=== PATIENT | female | born 1945 | race Hispanic/Latino ===

== ENCOUNTER → 2017-11-08 | Outpatient (CLI) | payer OTHER ==
[~2017-11-08] MED LIST: ASPIRIN81 MG PO; FENOFIBRATE200 MG PO; IOPAMIDOL 370 MG/ML 200 ML INFUS..BTL INJ ONE; LEVAQUIN500 MG PO; METFORMIN HCL500 MG PO; METOPROLOL SUCC25 MG PO; NORVASC10 MG PO; PRAVASTATIN SOD80 MG PO; SODIUM CHLORIDE 0.9% 250ML 500 ML ONE; SODIUM CHLORIDE 0.9% 50ML 50 ML ONE; TRIAMTERENE-HC1 EAC2 PO; TYLENOL WITH C1 EACH PO; ZOFRAN ODT4 MG SL
[2017-11-08 14:39] LABS: CREATININE, SERUM 1.25 mg/dL (0.57-1.11)
--- NOTE | 2017-11-12 09:56 | Diagnostic Imaging Report ---
EXAMINATION: CT angiogram of the neck CLINICAL HISTORY:Bilateral carotid artery stenoses follow-up COMPARISON STUDIES:None TECHNIQUE: Axial images were obtained from the thoracic inlet. Coronal and sagittal images reconstructed from the axial data. Intravenous contrast: 75 mL. Of Isovue 370, hydration protocol was used. FINDINGS: If present, stenosis of the carotid bulbs is measured based on NASCET criteria i.e area of maximum stenosis compared to the cervical ICA distal to the bulb. Aortic arch and major vessels: Patent. No abnormalities. Common carotid arteries: Right: Patent. No abnormalities. Left :Patent. No abnormalities. Carotid bulbs: Right: Patent. No abnormalities. Left :Patent. No abnormalities. Internal carotid arteries: Right: Soft and calcified plaque in the right carotid bulb results in moderate stenosis (greater than 70 %) otherwise the cervical internal carotid artery is unremarkable. Left: Minimal mostly soft atherosclerotic plaque in the left carotid bulb results in mild stenoses (less than 50%), otherwise unremarkable cervical internal carotid artery.. Vertebral arteries: Patent. No abnormalities. The right is dominant. IMPRESSION: 1. Severe stenosis of the right carotid bulb (greater than 70%). 2. Mild stenosis of the left carotid bulb (less than 50%). 3. Unremarkable vertebral arteries. Signed by: Dr. Mame Cardenas M.D. on 11/12/2017 9:53 AM
== END ==
LOC: CT 13:34
DX: I65.23 Occlusion and stenosis of bilateral carotid arteries (principal)
CPT/HCPCS: 36415; 70498; 82565; 84520; J7050; Q9967

== ENCOUNTER 2018-03-23 00:49 | Emergency (ER) | payer OTHER ==
[~2018-03-23] VITALS: Ht 162.6 cm; Wt 64.4 kg
[~2018-03-23 00:49] MED LIST changes: -IOPAMIDOL 370 MG/ML 200 ML INFUS..BTL INJ ONE; -SODIUM CHLORIDE 0.9% 250ML 500 ML ONE; -SODIUM CHLORIDE 0.9% 50ML 50 ML ONE
[2018-03-23 02:24] VITALS: BP 130/69
[2018-03-26] MEDS ORDERED: ASPIR 8181 MG PO (11:42)
== END 2018-03-23 02:24 | disposition home or self-care (01) ==
LOC: ER 00:49
DX: I10 Essential (primary) hypertension (principal); E11.9 Type 2 diabetes mellitus without complications; I65.29 Occlusion and stenosis of unspecified carotid artery
CPT/HCPCS: 99282

== ENCOUNTER 2018-03-27 11:44 | Inpatient (IN) | payer OTHER ==
[2018-03-26 12:18] LABS: BASOPHILS # (AUTO) 0.1 (0.0-0.1); BASOPHILS % 1.3 % (0.0-1.0); EOSINOPHILS # (AUTO) 0.2 (0.0-0.4); EOSINOPHILS % 2.3 % (0.0-6.0); HEMATOCRIT 38.8 % (34.2-44.1); HEMOGLOBIN 12.7 g/dL (12.0-16.0); LYMPHOCYTES # (AUTO) 2.1 (1.0-3.2); LYMPHOCYTES % 29.4 % (18.0-39.1); MEAN CORPUSCULAR HEMOGLOBIN 29.7 pg (28-32); MEAN CORPUSCULAR HGB CONC 32.7 g/dL (31-35); MEAN CORPUSCULAR VOLUME 90.7 fL (81-99); MONOCYTES # (AUTO) 0.5 (0.2-0.8); MONOCYTES % 6.6 % (4.4-11.3); NEUTROPHILS # (AUTO) 4.3 (2.1-6.9); NEUTROPHILS % 60.3 % (38.7-80.0); PLATELET COUNT 271 x10e3/uL (140-360); RED BLOOD COUNT 4.28 x10e6/uL (3.6-5.1); RED CELL DISTRIBUTION WIDTH 13.1 % (11.7-14.4)
--- NOTE | 2018-03-26 12:23 | Diagnostic Imaging Report ---
PROCEDURE: X-RAY CHEST, TWO VIEWS COMPARISON: None. INDICATIONS: chest pain FINDINGS: The lungs are well-inflated. No focal consolidation, pleural effusion, or pneumothorax. Left upper lobe calcified granuloma. Mild tortuosity and atherosclerotic calcification of the thoracic aorta. Normal heart size. No pulmonary edema. No acute osseous abnormality. Bilateral acromioclavicular degenerative changes. Surgical clips project over the right upper quadrant of the abdomen likely related to prior cholecystectomy. CONCLUSION: No acute cardiopulmonary abnormality. Dictated by: Frank Rojo M.D. on 03/26/2018 at 12:28 Electronically approved by: Frank Rojo M.D. on 03/26/2018 at 12:28
[2018-03-26 12:30] LABS: INR 1.02; PARTIAL THROMBOPLASTIN TIME 28.8 seconds (23.8-35.5); PROTHROMBIN TIME 12.6 seconds (11.9-14.5)
[2018-03-26 12:35] LABS: ANION GAP 14.4 mmol/L (8-16); CALCIUM 10.4 mg/dL (8.4-10.2); CREATININE, SERUM 1.11 mg/dL (0.57-1.11); POTASSIUM 4.4 mmol/L (3.5-5.1)
[~2018-03-27] VITALS: Ht 162.6 cm; Wt 75.7 kg
[2018-03-27] VITALS (19 sets, daily range): BP systolic 121–148; BP diastolic 60–71
[~2018-03-27 11:44] MED LIST changes: +ASPIR 8181 MG PO
[2018-03-27] MEDS ORDERED: PROTAMINE SULFATE 10 MG/ML 5 ML VIAL ONE (12:45)
[2018-03-27] MEDS ORDERED: LIDOCAINE HCL 1% 2 ML AMP ONE (12:45)
[2018-03-27] MEDS ORDERED: MUPIROCIN 2% OINT 22 GM TUBE ONE ×2 (12:46→12:48)
[2018-03-27] MEDS ORDERED: GELATIN SPONGE SZ 100 ONE (12:46)
[2018-03-27] MEDS ORDERED: THROMBIN FOR SOLN 5,000 UNIT VIAL ONE (12:46)
[2018-03-27] MEDS ORDERED: HEPARIN SOD (PORCINE) 1000 UNIT/ML 30ML ONE (12:46)
[2018-03-27] MEDS ORDERED: SODIUM CHLORIDE 0.9% 500ML 500 ML ONE (12:46)
[2018-03-27] MEDS ORDERED: HEPARIN SOD/SOD CHLORIDE 1,000 ML ONE (13:50)
[2018-03-27] MEDS ORDERED: LIDOCAINE HCL (LTA) 4 ML SOLN ONE (13:59)
[2018-03-27] MEDS ORDERED: ONDANSETRON HCL INJ 2 MG/ML VIAL ONE (15:18)
[2018-03-27] MEDS ORDERED: GLYCOPYRROLATE INJ 1MG/ 5 ML SYR ONE (15:18)
[2018-03-27] MEDS ORDERED: LIDOCAINE HCL 2% LOCAL INJ 5 ML SDV VIAL INJ ONE (15:18)
[2018-03-27] MEDS ORDERED: DESFLURANE 240 ML BTL INH ONE (15:18)
[2018-03-27] MEDS ORDERED: ACETAMINOPHEN 1000 MG/100 ML IV ONE (15:18)
[2018-03-27] MEDS ORDERED: ROCURONIUM BROMIDE 10 MG/ML 5ML VIAL ONE (15:18)
[2018-03-27] MEDS ORDERED: NEOSTIGMINE 5 MG/5ML SYR ONE (15:18)
[2018-03-27] MEDS ORDERED: EPHEDRINE SULFATE INJ 50 MG/10 ML SYR ONE (15:18)
[2018-03-27] MEDS ORDERED: PROPOFOL IV EMULSION 10 MG/ML 20 ML VIAL ONE (15:18)
[2018-03-27] MEDS ORDERED: KETOROLAC TROMETHAMINE 30 MG/ML VIAL ONE (15:18)
[2018-03-27] MEDS ORDERED: LABETALOL HCL 5 MG/ML 20ML VIAL ONE (15:18)
[2018-03-27] MEDS ORDERED: DEXAMETHASONE SOD PHOS INJ 4 MG/ML VIAL ONE (15:18)
[2018-03-27] MEDS ORDERED: FENTANYL CITRATE/PF 100MCG/2 ML INJ ONE ×2 (16:40→17:13)
[2018-03-27] MEDS ORDERED: MIDAZOLAM HCL 2 MG/2 ML VIAL ONE (16:51)
[2018-03-27 17:13] LABS: BASOPHILS # (AUTO) 0.1 (0.0-0.1); BASOPHILS % 0.8 % (0.0-1.0); EOSINOPHILS # (AUTO) 0.1 (0.0-0.4); EOSINOPHILS % 1.8 % (0.0-6.0); HEMATOCRIT 33.5 % (34.2-44.1); HEMOGLOBIN 11.4 g/dL (12.0-16.0); LYMPHOCYTES % 16.6 % (18.0-39.1); MEAN CORPUSCULAR HEMOGLOBIN 30.2 pg (28-32); MEAN CORPUSCULAR VOLUME 88.6 fL (81-99); MONOCYTES # (AUTO) 0.1 (0.2-0.8); MONOCYTES % 1.9 % (4.4-11.3); NEUTROPHILS # (AUTO) 4.9 (2.1-6.9); NEUTROPHILS % 78.6 % (38.7-80.0); PLATELET COUNT 217 x10e3/uL (140-360); RED BLOOD COUNT 3.78 x10e6/uL (3.6-5.1); RED CELL DISTRIBUTION WIDTH 13.2 % (11.7-14.4)
[2018-03-27 17:32] LABS: ALBUMIN 3.5 g/dL (3.5-5.0); ALBUMIN/GLOBULIN RATIO 1.1 (0.8-2.0); ANION GAP 15.6 mmol/L (8-16); CALCIUM 9.5 mg/dL (8.4-10.2); CREATININE, SERUM 0.99 mg/dL (0.57-1.11); POTASSIUM 3.6 mmol/L (3.5-5.1)
[2018-03-27] MEDS ORDERED: MORPHINE SULFATE 2 MG/ML SYR IV PRN (19:00)
[2018-03-27] MEDS ORDERED: MORPHINE SULFATE INJ 4 MG/ML INJ IV PRN (19:00)
[2018-03-27] MEDS ORDERED: LABETALOL HCL 5 MG/ML 20ML VIAL IV PRN (19:15)
[2018-03-27] MEDS ORDERED: ONDANSETRON HCL 4 MG ORAL DISINTEGRATING TAB PO PRN (19:15)
[2018-03-27] MEDS ORDERED: HYDROCODONE/APAP 5MG-325MG TAB PO PRN ×2 (19:15)
[2018-03-27] MEDS: SODIUM CHLORIDE 0.9% 1000ML 1,000 ML IV SCH (19:37)
[2018-03-28] VITALS (50 sets, daily range): BP systolic 111–161; BP diastolic 55–86
[2018-03-28] MEDS ORDERED: CEFAZOLIN SOD 1 GM VIAL IV ONE
[2018-03-28] MEDS: SODIUM CHLORIDE 0.9% 1000ML 1,000 ML IV SCH ×2 (04:52→07:47)
[2018-03-28 05:00] LABS: BASOPHILS % 0.1 % (0.0-1.0); HEMATOCRIT 32.3 % (34.2-44.1); HEMOGLOBIN 10.9 g/dL (12.0-16.0); LYMPHOCYTES # (AUTO) 0.8 (1.0-3.2); LYMPHOCYTES % 8.9 % (18.0-39.1); MEAN CORPUSCULAR HEMOGLOBIN 29.9 pg (28-32); MEAN CORPUSCULAR HGB CONC 33.7 g/dL (31-35); MEAN CORPUSCULAR VOLUME 88.5 fL (81-99); MONOCYTES # (AUTO) 0.2 (0.2-0.8); MONOCYTES % 2.6 % (4.4-11.3); NEUTROPHILS # (AUTO) 7.5 (2.1-6.9); NEUTROPHILS % 88.2 % (38.7-80.0); PLATELET COUNT 225 x10e3/uL (140-360); RED BLOOD COUNT 3.65 x10e6/uL (3.6-5.1); RED CELL DISTRIBUTION WIDTH 13.2 % (11.7-14.4)
[2018-03-28 05:22] LABS: ANION GAP 13.7 mmol/L (8-16); BLOOD UREA NITROGEN 18 mg/dL (7-26); BUN/CREATININE RATIO 20 (6-25); CALCIUM 9.5 mg/dL (8.4-10.2); CARBON DIOXIDE 24 mmol/L (22-29); CHLORIDE 105 mmol/L (98-107); CREATININE, SERUM 0.89 mg/dL (0.57-1.11); EST GLOMERULAR FILTRATION RATE > 60 ML/MIN (60-); GLUCOSE 149 mg/dL (74-118); POTASSIUM 3.7 mmol/L (3.5-5.1); SODIUM 139 mmol/L (136-145)
[2018-03-28] MEDS: AMLODIPINE BESYLATE 10 MG TAB PO SCH (08:19)
[2018-03-28] MEDS: METOPROLOL SUCCINATE 25 MG TAB XL PO SCH (08:19)
--- NOTE | 2018-03-28 08:33 | Consultation ---
DATE OF CONSULTATION: March 28, 2018 PULMONARY/CRITICAL CARE CONSULTATION REFERRING PHYSICIAN: Dr. Serrato. CHIEF COMPLAINT: Hypertension, peripheral vascular disease and recent carotid endarterectomy. HISTORY OF PRESENT ILLNESS: The patient is a 73-year-old woman. She has a history of hypertension, diabetes and peripheral vascular disease. She has symptoms of presyncope and lightheadedness. She went for an ultrasound of the carotid and subsequent CT angiogram that showed an 80% stenosis of the right internal carotid. She was subsequently referred for surgery. She went for carotid endarterectomy. The procedure went well. There was minimal blood loss. She is in the ICU now. She has an A line in place. She does have some incisional pain, but has no focal neurological complaints. PAST MEDICAL HISTORY: 1. Hypertension. 2. Diabetes. 3. Peripheral vascular disease. PAST SURGICAL HISTORY: Recent carotid endarterectomy. SOCIAL HISTORY: The patient is not an active drinker or smoker. FAMILY HISTORY: Family history is noncontributory. ALLERGIES: THERE ARE NO KNOWN DRUG ALLERGIES. REVIEW OF SYSTEMS: There is no fever. She has no headache. She is complaining of some incisional pain in the neck. She has no chest pain. She has no difficulty breathing. She has no cough or wheezing. She has no abdominal pain. She has no nausea or vomiting. She has no focal neurological complaints. PHYSICAL EXAMINATION: VITAL SIGNS: The patient is afebrile. The blood pressure is 124/60 and the saturation is 97%. HEENT: Shows no facial swelling or erythema. The nasal mucosa is normal. CARDIAC: Reveals a regular rate and rhythm with normal S1 and S2. There are no murmurs or rubs. LUNGS: Auscultation reveals clear breath sounds bilaterally. There is no wheezing. ABDOMEN: Soft, nontender. There is no rebound or guarding. EXTREMITIES: Shows no underlying edema or calf tenderness. There is no cyanosis or clubbing. SKIN: No rashes. NEUROLOGIC: Shows no focal abnormalities. LABORATORY DATA: Electrolytes: BUN and creatinine are within normal limits. The CBC is normal. PT and INR are normal. IMPRESSION: 1. Recent carotid endarterectomy. 2. Hypertension. 3. Diabetes. PLAN: 1. Remove arterial line. 2. Mobilize patient. 3. Control blood pressure. 4. Tentative discharged later today or tomorrow. Job#: [id number] GE
--- NOTE | 2018-03-28 08:50 | Consultation ---
DATE OF CONSULTATION: March 27, 2018 CARDIOLOGY CONSULTATION REASON FOR CONSULTATION: Status post right CEA. HPI: This is a pleasant 73-year-old female with a history of severe right carotid stenosis. She was having dizziness and lightheaded. She did a carotid Doppler of the neck that showed severe carotid stenosis. She was brought in as an outpatient. She underwent a right CEA. She is doing better and recovering in the ICU. She has a history of hypertension. She used to smoke, but she quit last week. She denied any chest pain, any palpitation, any shortness of breath, or diaphoresis. PAST MEDICAL HISTORY: Severe right carotid stenosis, GI bleed, hypertension, hyperlipidemia, diabetes, anemia, PVD, and tobacco abuse. PAST SURGICAL HISTORY: Cholecystectomy and eye surgery for glaucoma. FAMILY HISTORY: Noncontributory. SOCIAL HISTORY: She lives at home with family. She stated she quit smoking last week. MEDICATIONS: See med list. ALLERGIES: SHE IS NOT ALLERGIC TO ANY MEDICATION. REVIEW OF SYSTEMS: Negative except those mentioned above. She is status post right CEA. PHYSICAL EXAMINATION VITAL SIGNS: Temperature 97, heart rate 76, blood pressure 147/55, respirations 16, oxygen saturation 97% on room air. GENERAL: She is awake, alert and oriented times 3. HEENT: Mucous membrane moist. She has a dressing on the right neck with ice pack. NECK: Supple with dressing on the right side. LUNGS: Clear to auscultation. CARDIOVASCULAR: S1 and S2 present. ABDOMEN: Soft. NEUROLOGICAL: Intact. EXTREMITIES: With no edema. LABS: Sodium 139, potassium 3.7, chloride 105, CO2 24, BUN 18, creatinine 0.89, glucose 149. White blood cell 8.53, hemoglobin 10.9, hematocrit 32.3, and platelets 225,000. PT 12.6, PTT 28.8 and INR 1.04. IMPRESSION 1. Right carotid stenosis. 2. Hypertension. 3. Diabetes. 4. Hyperlipidemia. 5. Tobacco abuse. 6. History of anemia. 7. History of peripheral vascular disease. ASSESSMENT AND PLAN: She is status post right CEA and recovering good. Blood pressure and heart rate stable. Will continue home medications. PT to get her out of the bed. If stable, she can be discharged home today. Further cardiac workup pending clinical course. Thank you for this consult. DICTATED BY FRANSISCO MARROQUIN NP Job#: [id number] RI
--- NOTE | 2018-03-28 11:15 | Operative Report ---
DATE OF PROCEDURE: March 27, 2018 MANAGER PROGRAMS: Kuldip Ortiz PREOPERATIVE DIAGNOSIS: Severe right carotid stenosis. POSTOPERATIVE DIAGNOSIS: Severe right carotid stenosis. TITLE OF OPERATION: Right carotid endarterectomy. DESCRIPTION OF OPERATION: After the satisfactory accomplishment of general anesthesia, the patient's right neck was prepped and draped in a sterile fashion. A standard right carotid incision was made along the anterior border of the sternomastoid muscle. The incision was carried down through the subcutaneous tissues to expose the right common carotid artery. The vessel was dissected free from the surrounding tissues and looped with a vessel loop. The dissection was carried distally to expose the internal carotid artery and the external carotid artery and its branches. Care was taken to identify and preserve all nerve structures in the region. Systemic heparin was given through a central vein cannula for the purposes of anticoagulation. The common, external and internal carotid arteries were briefly cross-clamped. A long incision was made in the common carotid artery and carried through the bifurcation and well up into the internal carotid artery. A severely obstructing, atherosclerotic plaque was quickly encountered. The plaque was removed using standard endarterectomy techniques. Following this, an indwelling shunt was placed in the common carotid artery proximally and the internal carotid artery distally, thereby re-establishing blood flow to the right side of the brain for the remainder of the case. The surface of the vessel was then smoothed, and all loose debris was carefully removed. Heparinized saline flushes were routinely employed. A previously constructed Dacron patch was brought into the operative field and used to close the arteriotomy site. Running 7-0 Prolene was used for this patch closure. Prior to completing the closure, the shunt was removed, and the vessel was flushed free from all air and debris. Once the sutures were tied, excellent pulses were located within the patch area and beyond. Protamine was given to counteract the effects of the heparin. The cannulas were removed, and the pursestring sutures were tied. All bleeding points were carefully cauterized, ligated or oversewn. The wound was thoroughly irrigated with antibiotic solution and closed in layers with interrupted 2-0 Vicryl for the deep tissues and Monocryl subcuticular stitches for the skin. The patient tolerated the procedure well and was returned to the intensive care unit in good condition. Job#: [id number]
[2018-03-28] MEDS ORDERED: ENOXAPARIN SOD INJ 40 MG/0.4 ML SYR SC SCH (17:00)
[2018-03-28] MEDS ORDERED: SIMVASTATIN 40 MG TAB PO SCH (21:00)
[2018-03-29] VITALS: BP 133/55
[2018-03-29] MEDS: SODIUM CHLORIDE 0.9% 1000ML 1,000 ML IV SCH ×2 (01:00→11:00)
[2018-03-29 04:00] VITALS: BP 136/63
[2018-03-29 08:21] VITALS: BP 163/73
[2018-03-29] MEDS: AMLODIPINE BESYLATE 10 MG TAB PO SCH (08:36)
[2018-03-29] MEDS: METOPROLOL SUCCINATE 25 MG TAB XL PO SCH (08:37)
[2018-03-29 11:51] VITALS: BP 137/68
[2018-03-29] MEDS ORDERED: SODIUM CHLORIDE 0.9% 1000ML 1,000 ML ONE (13:57)
== END 2018-03-29 13:16 | disposition home or self-care (01) | DRG 39 ==
LOC: OR 11:44 → PACU V 16:58 → ICU 17:53 → MED/SURG 03-28 13:08
PROVIDERS: ADMIT Thoracic Surgery (Cardiothoracic Vascular Surgery); ATTEND Thoracic Surgery (Cardiothoracic Vascular Surgery)
PROC: 03CK0ZZ Extirpation of Matter from Right Internal Carotid Artery, Open Approach (ICD-10-PCS; 2018-03-27)
PROC: 03UK0JZ Supplement Right Internal Carotid Artery with Synthetic Substitute, Open Approach (ICD-10-PCS; 2018-03-27)
PROC: 03CH0Z6 (ICD-10-PCS; principal; 2018-03-27 14:00)
DX: I65.21 Occlusion and stenosis of right carotid artery (principal); I10 Essential (primary) hypertension; I25.10 Atherosclerotic heart disease of native coronary artery without angina pectoris; I73.9 Peripheral vascular disease, unspecified; E11.9 Type 2 diabetes mellitus without complications; Z79.4 Long term (current) use of insulin; E78.5 Hyperlipidemia, unspecified
CPT/HCPCS: 36415; 71046; 80048; 80053; 82948; 85025; 85610; 85730; 86850; 86900; 86920; 88304; 88311; 93005; 97139; C1768; J0690; J1100; J1644; J1650; J1885; J2001; J2250; J2405; J2720; J7030; J7040

== ENCOUNTER 2018-05-29 01:52 | Emergency (ER) | payer OTHER ==
[~2018-05-29] VITALS: Ht 162.6 cm; Wt 75.7 kg
== END 2018-05-29 02:32 | disposition home or self-care (01) ==
LOC: ER 01:52
DX: I10 Essential (primary) hypertension (principal); Z87.891 Personal history of nicotine dependence; Z82.49 Family history of ischemic heart disease and other diseases of the circulatory system
CPT/HCPCS: 93005; 99282

== ENCOUNTER 2020-07-11 21:35 | Emergency (ER) | payer OTHER ==
[~2020-07-11] VITALS: Ht 162.6 cm; Wt 64.9 kg
--- NOTE | 2020-07-11 21:58 | Emergency Department Note ---
History of Present Illnes History of Present Illness Chief Complaint: Hypertension History of Present Illness This is a 75 year old female with onset of palpitations and dizziness at 1999. Denies CP or SOB. at Home noted SBP of 199 mmHg Historian: Patient, [employer] Supervisor/EMS Arrival Mode: HFD Onset (how long ago): hour(s) (1) Location: chest and head Radiation: Reports non-radiation Severity: moderate Onset quality: sudden Duration (how long): hour(s) (2) Timing of current episode: constant Progression: partially resolved Chronicity: new Context: Denies recent illness, Denies recent surgery, Denies recent immobilization, Denies recent travel, Denies trauma/injury, Denies new med ications, Denies hx of DVT/PE, Denies non-compliance w/ medications, Denies other Relieving factors: none Exacerbating factors: none Associated symptoms: Denies chest pain, Denies syncope, Denies weakness Treatments prior to arrival: none Past Medical/Family History Physician Review I have reviewed the patient's past medical and family history. Any updates have been documented here. Past Medical History Recent Fever: No Clinical Suspicion of Infectio: No New/Unexplained Change in Ment: No Past Medical History: Hypertension, Diabetes, CAD, Hyperlipedemia Other Medical History: smoker 40 yrs Past Surgical History: Cholecysctectomy, Cataract Removal Other Surgery: Retina repair CATROID Social History Smoking Cessation: Current some day smoker Counseling Performed: Yes Alcohol Use: None Other Last Tetanus: OOD Review of Systems Review of Systems Constitutional: Reports no symptoms EENTM: Reports no symptoms Cardiovascular: Reports palpitations Respiratory: Reports no symptoms Gastrointestinal: Reports no symptoms Genitourinary: Reports no symptoms Musculoskeletal: Reports no symptoms Integumentary: Reports no symptoms Neurological: Reports other (dizziness) Psychological: Reports no symptoms Endocrine: Reports no symptoms Hematological/Lymphatic: Reports no symptoms Physical Exam Related Data Allergies: Coded Allergies: No Known Allergies (Unverified , 05/17/17) Vital signs reviewed: Yes Physical Exam CONSTITUTIONAL Constitutional: Present well-developed, Present well-nourished HENT HENT: Present normocephalic, Present atraumatic, Present oropharynx clear/moist, Present nose normal HENT L/R: Present left ext ear normal, Present right ext ear normal EYES Eyes: Reports PERRL, Reports conjunctivae normal NECK Neck: Present ROM normal PULMONARY Pulmonary: Present effort normal, Present breath sounds normal CARDIOVASCULAR Cardiovascular: Present regular rhythm, Present heart sounds normal, Present capillary refill normal, Present normal rate GASTROINTESTINAL Abdominal: Present soft, Present nontender, Present bowel sounds normal GENITOURINARY Genitourinary: Present exam deferred SKIN Skin: Present warm, Present dry MUSCULOSKELETAL Musculoskeletal: Present ROM normal NEUROLOGICAL Neurological: Present alert, Present oriented x 3, Present no gross motor or sensory deficits PSYCHOLOGICAL Psychological: Present mood/affect normal, Present judgement normal Results Laboratory Lab results reviewed: Yes Imaging Imaging results reviewed: Yes Impressions [facility] [address] [address] Patient Name: SCOTT WHITTAKER MR #: [id number] : 1945 Age/Sex: 75/F Req #: [id number] Adm Physician: Ordered by: ASHLEY FONTAINE DO Report #: [id number] Location: ER Room/Bed: Procedure: [id number] CT/CT BRAIN WO Exam Date: 07/11/20 Exam Time: 3 REPORT STATUS: Signed Exam: Head CT without contrast History: Dizziness Comparison studies: None Technique: Axial images were obtained from the skull base to the vertex. Coronal and sagittal images reconstructed from the axial data. Dose modulation, iterative reconstruction, and/or weight based adjustment of the mA/kV was utilized to reduce the radiation dose to as low as reasonably achievable. Radiation dose: Total DLP: 921 mGy*cm. Estimated effective dose: DLP x 0.015 Intravenous contrast: None Findings: Scalp: No abnormalities. Bones: No fractures, blastic or lytic lesions. Brain sulci: Mildly prominent. Ventricles: Normal in size and configuration. No hydrocephalus. Extra-axial spaces: No masses, no fluid collection. Parenchyma: A few scattered hypodensities in the supratentorial white matter are nonspecific but are most compatible with chronic microvascular ischemic changes. No mass, acute hemorrhage or acute or chronic cortical insults. Sellar/suprasellar region: No abnormalities. Craniocervical junction: Patent foramen magnum. No Chiari one malformation. Incidental findings: Atherosclerotic calcifications in the carotid siphons in the right intradural vertebral artery. IMPRESSION: 1. No acute intracranial abnormalities. 2. Mild chronic microvascular ischemic changes. Signed by: Dr. Gayathri Gee M.D. 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 Date: Jul 11, 2020 Time: 21:52 Prior ECG tracings: reviewed Rhythm: sinus rhythm Rate: normal BPM: 76 QRS axis: normal ST segments normal: Yes T waves normal: Yes Other findings: PRWP Clinical Impression: non-specific ECG Assessment & Plan Medical Decision Making MDM Diff Dx : ACS, Intracranial brain bleeding, PNA, PTX Assessment & Plan Final Impression: (1) Palpitations (2) Hypertensive urgency Home Meds Reported Medications Aspirin (ASPIR 81) 81 Mg Tablet.dr, 81 MG PO DAILY 03/26/18 Triamterene/Hydrochlorothiazid (TRIAMTERENE-HCTZ 37.5-25 MG CP) 1 Each Capsule, 37.5 MG PO DAILY 11/29/16 Metoprolol Succinate (METOPROLOL SUCCINATE) 25 Mg Tab.er.24h, 25 MG PO DAILY 11/29/16 Pravastatin Sodium (PRAVASTATIN SODIUM) 80 Mg Tablet, 80 MG PO DAILY THERAPEUTICALLY SUBSTITUTED WITH SIMVASTATIN 40MG 11/29/16 Amlodipine Besylate (NORVASC) 10 Mg Tab, 10 MG PO DAILY 11/29/16 Fenofibrate (FENOFIBRATE) 200 Mg Cap, 200 MG PO HS 11/29/16 Metformin Hcl (METFORMIN HCL) 500 Mg Tablet, 500 MG PO DAILY, #60 TAB 11/29/16 ASHLEY FONTAINE DO Jul 11, 2020 21:58
[2020-07-11 22:02] LABS: BASOPHILS # (AUTO) 0.1 (0.0-0.1); BASOPHILS % 1.1 % (0.0-1.0); EOSINOPHILS # (AUTO) 0.2 (0.0-0.4); EOSINOPHILS % 4.2 % (0.0-6.0); HEMATOCRIT 32.8 % (34.2-44.1); HEMOGLOBIN 10.7 g/dL (12.0-16.0); LYMPHOCYTES # (AUTO) 2.1 (1.0-3.2); LYMPHOCYTES % 43.7 % (18.0-39.1); MEAN CORPUSCULAR HEMOGLOBIN 29.9 pg (28-32); MEAN CORPUSCULAR HGB CONC 32.6 g/dL (31-35); MEAN CORPUSCULAR VOLUME 91.6 fL (81-99); MONOCYTES # (AUTO) 0.5 (0.2-0.8); MONOCYTES % 10.1 % (4.4-11.3); NEUTROPHILS # (AUTO) 1.9 (2.1-6.9); NEUTROPHILS % 40.5 % (38.7-80.0); PLATELET COUNT 200 x10e3/uL (140-360); RED BLOOD COUNT 3.58 x10e6/uL (3.6-5.1); RED CELL DISTRIBUTION WIDTH 13.8 % (11.7-14.4)
[2020-07-11] MEDS: SODIUM CHLORIDE 0.9% 1000ML 1,000 ML IV STA (22:13)
[2020-07-11] MEDS: ASPIRIN 81 MG CHEW TAB PO ONE (22:13)
[2020-07-11 22:25] LABS: CREATINE KINASE MB 1.1 ng/mL (0-5.0)
--- NOTE | 2020-07-11 22:44 | Diagnostic Imaging Report ---
Exam: Head CT without contrast History: Dizziness Comparison studies: None Technique: Axial images were obtained from the skull base to the vertex. Coronal and sagittal images reconstructed from the axial data. Dose modulation, iterative reconstruction, and/or weight based adjustment of the mA/kV was utilized to reduce the radiation dose to as low as reasonably achievable. Radiation dose: Total DLP: 921 mGy*cm. Estimated effective dose: DLP x 0.015 Intravenous contrast: None Findings: Scalp: No abnormalities. Bones: No fractures, blastic or lytic lesions. Brain sulci: Mildly prominent. Ventricles: Normal in size and configuration. No hydrocephalus. Extra-axial spaces: No masses, no fluid collection. Parenchyma: A few scattered hypodensities in the supratentorial white matter are nonspecific but are most compatible with chronic microvascular ischemic changes. No mass, acute hemorrhage or acute or chronic cortical insults. Sellar/suprasellar region: No abnormalities. Craniocervical junction: Patent foramen magnum. No Chiari one malformation. Incidental findings: Atherosclerotic calcifications in the carotid siphons in the right intradural vertebral artery. IMPRESSION: 1. No acute intracranial abnormalities. 2. Mild chronic microvascular ischemic changes. Signed by: Dr. Frank Gray M.D. on 07/11/2020 10:41 PM
--- OUTSIDE RECORDS SUMMARY | 2020-07-11 22:51 | XMS REPORT | Continuity of Care Document ---
Author Author [facility] t Organization [facility] Address [address] [place] [address] Phone Unavailable Care Team Providers Care Support Merchandiser Name Role Phone JOSE ANGEL MUNOZ, ROWENA PCP ASHLEY FONTAINE Attphys Unavailable XIOMARA GLASS Attphys Unavailable ARLEN KAY Attphys Unavailable Jaden CHÁVEZ Attphys Unavailable Beckie LOMELI Attphys Unavailable Boo ADAM Admphys Unavailable Payers Payer Name Policy Type Policy Number Effective Date Expiration Date Debby Pettit [id number] 2018 00:00:00 [facility] Problems Condition Name Condition Details Condition Category Status Onset Date Resolution Date Last Treatment Date Treating Clinician Comments Source Cholelithiasis Cholelithiasis Problem Active [facility] Allergies, Adverse Reactions, Alerts This patient has no known allergies or adverse reactions. Medications Ordered Medication Name Filled Medication Name Start Date Stop Da te Current Medication? Ordering Clinician Indication Dosage Frequency Signature (SIG) Comments Components Source Amlodipine Besylate (Norvasc) 10 Mg Tab Amlodipine Besylate (Norvasc) 10 Mg Tab Yes 10 Daily [facility] Aspirin (Aspir 81) 81 Mg Tablet. Aspirin (Aspir 81) 81 Mg Tablet. Yes 81 Daily [facility] Fenofibrate 200 Mg Cap Fenofibrate 200 Mg Cap Yes 200 Bedtime [facility] Metformin Hcl 500 Mg Tablet Metformin Hcl 500 Mg Tablet Yes 500 Daily [facility] Metoprolol Succinate 25 Mg Tab.er.24h Metoprolol Succinate 25 Mg Ta b.er.24h Yes 25 Daily [facility] Pravastatin Sodium 80 Mg Tablet Pravastatin Sodium 80 Mg Tablet Yes 80 Daily [facility] Triamterene/Hydrochlorothiazid (Triamterene-Hctz 37.5- 25 Mg Cp) 1 Each Capsule Triamterene/Hydrochlorothiazid (Triamterene-Hctz 37.5-25 Mg Cp) 1 Each Capsule Yes 37.5 Daily [facility] Acetaminophen With Codeine (Tylenol With Codeine #3 Tablet) 1 Each Tablet, 300 Mg Oral Acetaminophen With Codeine (Tylenol With Codeine #3 Tablet) 1 Each Tablet, 300 Mg Oral 2018-03-26 00:00:00 No 300 Every 4 Hours as needed for Pain [facility] Levofloxacin (Levaquin) 500 Mg Tablet, 500 Mg Oral Lev ofloxacin (Levaquin) 500 Mg Tablet, 500 Mg Oral 2018-03-26 00:00:00 No 500 D aily [facility] Ondansetron (Zofran Odt) 4 Mg Tab.rapdis, 4 Mg Subling ual Ondansetron (Zofran Odt) 4 Mg Tab.rapdis, 4 Mg Sublingual 2018-03-26 00:00:00 No 4 Every 6 Hours as needed for Nausea And Vomiting [facility] Aspirin 81 Mg Tab.chew, 81 Mg Oral Aspirin 81 Mg Tab.chew, 81 Mg Oral 2016-12-02 00:00:00 No 81 Daily [facility] Procedures Procedure Date / Time Performed Performing Clinician Sour e EXTIRPATE MATTER FROM R COM CAROTID, BIFURC, OPEN 2018-03-27 00:00:00 [facility] EXTIRPATION OF MATTER FROM R INT CAROTID, OPEN APPROACH 2017 00:00:00 [facility] SUPPLEMENT R INT CAROTID WITH SYNTH SUB, OPEN APPROACH 03-27 00:00:00 QUAN [facility] X-ray of chest, two views 2018-03-26 00:00:00 XIOMARA GLASS [facility] CT angiography of neck 2017-11-08 00:00:00 ARLEN KAY [facility] Encounters Start Date/Time End Date/Time [facility] Source 2018-05-29 01:52:00 2018-05-29 02:32:00 Departed Emergency Room [facility] [id number] [facility] 2018-03-27 16:58:00 2018-03-29 13:16:00 Discharged Inpatient 3 XIOMARA GLASS [facility] [id number] [facility] 2018-03-23 00:49:00 2018-03-23 02:24:00 Departed Emergency Room [facility] [id number] [facility] 2017-11-08 13:34:00 2017-11-08 13:34:00 Registered Clinic ARLEN MOREJON [facility] [id number] [facility] Results Test Description Test Time Test Comments Results Result Comments Source CT BRAIN WO 2020-07-11 22:32:00 [facility] 1945 Sex: F [place] [address] Patient Name: SCOTT WHITTAKER MR #: [id number] : 1945 Age/Sex: 75/F Req #: [id number] Adm Physician: Ordered by: ASHLEY FONTAINE DO Report #: [id number] Location: ER Room/Bed: Procedure: [id number] CT/CT BRAIN WO Exam Date: 07/11/20 Exam Time: 3 REPORT STATUS: Signed Exam: Head CT without contrast History: Dizziness Comparison studies: None Technique: Axial images were obtained from the skull base to the vertex. Coronal and sagittal images reconstructed from the axial data. Dose modulation, iterative reconstruction, and/or weight based adjustment of the mA/kV was utilized to reduce the radiation dose to as low as reasonably achievable. Radiation dose: Total DLP: 921 mGy*cm. Estimated effective dose: DLP x 0.015 Intravenous contrast: None Findings: Scalp: No abnormalities. Bones: No fractures, blastic or lytic lesions. Brain sulci: Mildly prominent. Ventricles: Normal in size and configuration. No hydrocephalus. Extra-axial spaces: No masses, no fluid collection. Parenchyma: A few scattered hypodensities in the supratentorial white matter are nonspecific but are most compatible with chronic microvascular ischemic changes. No mass, acute hemorrhage or acute or chronic cortical insults. Sellar/suprasellar region: No abnormalities. Craniocervical junction: Patent foramen magnum. No Chiari one malformation. Incidental findings: Atherosclerotic calcifications in the carotid siphons in the right intradural vertebral artery. IMPRESSIO N: 1. No acute intracranial abnormalities. 2. Mild chronic microvascular ischemic changes. Signed by: Dr. Gayathri Gee M.D. on 07/11/2020 10:41 PM Dictated By: GAYATHRI GEE MD 42 Transcribed By: HALLIE on 07/11/202240 COPY TO: ASHLEY FONTAINE DO SCR MAMM BILATERAL DAVID CAD DIGITAL 2019-07-01 09:33:56 - SCR MAMM BILATERAL DAVID CAD DIGITALBILATERAL DIGITAL SCREENING MAMMOGRAM 3D/2D WITH CAD: 06/30/2019CLINICAL: Asymptomatic. Digital breast tomosynthesis was performed in addition to routine CC and MLO views. Current mammographic images were evaluated by either a [employer] M-Vu or a [email or web address] ImageChecker CAD (computer aided detection system). Comparison is made to exams dated 11/27/2017 mammogram - [facility] and 07/25/2016 mammogram - [facility]. There are scattered fibroglandular tissues in both breasts. There are benign calcifications in the left breast. No suspicious mass, architectural distortion, malignant type calcification, or lymph node abnormality detected. Breast architecture is stable compared to prior exams.IMPRESSION: BENIGNThere is no mammographic evidence of malignancy. Resume annual screening mammography in one year. Sharath Larson M.D. ss/penrad:07/01/2019 09:33:56 Sales Host: Mirian HAYNES, [facility] sent: BIRADS 1-2 Normal Mammogram BI-RADS: 2 Benign White Blood Count 2018-03-28 05:40:00 Test Item White Blood Count (test code = 6690-2) 8.53 4.8-10.8 [facility] CenterRed Blood Osfny8902-91-86 05:40:00* Test Item Value Reference Range Interpretation Comments Red Blood Count (test code = 789-8) 3.65 3.6-5.1 [facility] CenterHemoglobin2018-08-09 05:40:00* Test Item Value Reference Range Interpretation Comments Hemoglobin (test code = 36208-9) 10.9 12.0-16.0 L [facility] CenterHematocrit2018-08-09 05:40:00* Test Item Value Reference Range Interpretation Comments Hematocrit (test code = 4544-3) 32.3 34.2-44.1 L [facility] CenterMean Corpuscular Rfumql9129-10-94 05:40:00* Test Item Value Reference Range Interpretation Comments Mean Corpuscular Volume (test code = 787-2) 88.5 81-99 [facility] Corpuscular Wjwbwmzxcg9042-50-12 05:40:00* Test Item Value Reference Range Interpretation Comments Mean Corpuscular Hemoglobin (test code = 785-6) 29.9 28-32 [facility] Hemoglobin Concent 2018-03-28 05:40:00* Test Item Value Reference Range Interpretation Comments Mean Corpuscular Hemoglobin Concent (test code = 786-4) 33.7 31-35 [facility] CenterRed Cell Distribution Iipum8931-69-37 05:40:00* Test Item Value Reference Range Interpretation Comments Red Cell Distribution Width (test code = 44906-1) 13.2 11.7 -14.4 [facility] CenterPlatelet Ypsyp7240-17-94 05:40:00* Test Item Value Reference Range Interpretation Comments Platelet Count (test code = 777-3) 225 140-360 [facility] CenterNeutrophils (%) (Auto)2018-03-28 05:40:00 * Test Item Value Reference Range Interpretation Comments Neutrophils (%) (Auto) (test code = 43378-9) 88.2 38.7-80.0 H [facility] CenterLymphocytes (%) (Auto)2018-03-28 05:40:00 * Test Item Value Reference Range Interpretation Comments Lymphocytes (%) (Auto) (test code = 736-9) 8.9 18.0-39.1 L [facility] CenterMonocytes (%) (Auto)2018-03-28 05:40:00* Test Item Value Reference Range Interpretation Comments Monocytes (%) (Auto) (test code = 5905-5) 2.6 4.4-11.3 L [facility] CenterEosinophils (%) (Auto)2018-03-28 05:40:00 * Test Item Value Reference Range Interpretation Comments Eosinophils (%) (Auto) (test code = 713-8) 0.0 0.0-6.0 [facility] CenterBasophils (%) (Auto)2018-03-28 05:40:00* Test Item Value Reference Range Interpretation Comments Basophils (%) (Auto) (test code = 706-2) 0.1 0.0-1.0 [facility] CenterIM GRANULOCYTES %2018-03-28 05:40:00* Test Item Value Reference Range Interpretation Comments IM GRANULOCYTES % (test code = IM GRANULOCYTES %) 0.2 0.0- 1.0 [facility] CenterNeutrophils # (Auto)2018-03-28 05:40:00* Test Item Value Reference Range Interpretation Comments Neutrophils # (Auto) (test code = 751-8) 7.5 2.1-6.9 H [facility] CenterLymphocytes # (Auto)2018-03-28 05:40:00* Test Item Value Reference Range Interpretation Comments Lymphocytes # (Auto) (test code = 21509-2) 0.8 1.0-3.2 L [facility] CenterMonocytes # (Auto)2018-03-28 05:40:00* Test Item Value Reference Range Interpretation Comments Monocytes # (Auto) (test code = 742-7) 0.2 0.2-0.8 [facility] CenterEosinophils # (Auto)2018-03-28 05:40:00* Test Item Value Reference Range Interpretation Comments Eosinophils # (Auto) (test code = 711-2) 0.0 0.0-0.4 [facility] CenterBasophils # (Auto)2018-03-28 05:40:00* Test Item Value Reference Range Interpretation Comments Basophils # (Auto) (test code = 704-7) 0.0 0.0-0.1 [facility] CenterAbsolute Immature Granulocyte (auto 2018-03-28 05:40:00* Test Item Value Reference Range Interpretation Comments Absolute Immature Granulocyte (auto (christa t code = Absolute Immature Granulocyte (auto) 0.02 0-0.1 [facility] CenterWhite Blood Mtewe4730-69-05 05:40:00* Test Item Value Reference Range Interpretation Comments White Blood Count (test code = 6690-2) 8.53 4.8-10.8 [facility] CenterRed Blood Llbmh3833-96-55 05:40:00* Test Item Value Reference Range Interpretation Comments Red Blood Count (test code = 789-8) 3.65 3.6-5.1 [facility] CenterHemoglobin2018-08-09 05:40:00* Test Item Value Reference Range Interpretation Comments Hemoglobin (test code = 49708-3) 10.9 12.0-16.0 L [facility] CenterHematocrit2018-08-09 05:40:00* Test Item Value Reference Range Interpretation Comments Hematocrit (test code = 4544-3) 32.3 34.2-44.1 L [facility] CenterMean Corpuscular Qfpdcx0364-22-39 05:40:00* Test Item Value Reference Range Interpretation Comments Mean Corpuscular Volume (test code = 787-2) 88.5 81-99 [facility] CenterMean Corpuscular Iktvkcnrar1984-30-07 05:40:00* Test Item Value Reference Range Interpretation Comments Mean Corpuscular Hemoglobin (test code = 785-6) 29.9 28-32 [facility] CenterMean Corpuscular Hemoglobin Concent 2018-03-28 05:40:00* Test Item Value Reference Range Interpretation Comments Mean Corpuscular Hemoglobin Concent (test code = 786-4) 33.7 31-35 [facility] CenterRed Cell Distribution Svobh7565-60-19 05:40:00* Test Item Value Reference Range Interpretation Comments Red Cell Distribution Width (test code = 38495-3) 13.2 11.7 -14.4 [facility] CenterPlatelet Mfirw7636-91-86 05:40:00* Test Item Value Reference Range Interpretation Comments Platelet Count (test code = 777-3) 225 140-360 [facility] CenterNeutrophils (%) (Auto)2018-03-28 05:40:00 * Test Item Value Reference Range Interpretation Comments Neutrophils (%) (Auto) (test code = 24091-8) 88.2 38.7-80.0 H [facility] CenterLymphocytes (%) (Auto)2018-03-28 05:40:00 * Test Item Value Reference Range Interpretation Comments Lymphocytes (%) (Auto) (test code = 736-9) 8.9 18.0-39.1 L [facility] CenterMonocytes (%) (Auto)2018-03-28 05:40:00* Test Item Value Reference Range Interpretation Comments Monocytes (%) (Auto) (test code = 5905-5) 2.6 4.4-11.3 L [facility] CenterEosinophils (%) (Auto)2018-03-28 05:40:00 * Test Item Value Reference Range Interpretation Comments Eosinophils (%) (Auto) (test code = 713-8) 0.0 0.0-6.0 [facility] CenterBasophils (%) (Auto)2018-03-28 05:40:00* Test Item Value Reference Range Interpretation Comments Basophils (%) (Auto) (test code = 706-2) 0.1 0.0-1.0 [facility] CenterIM GRANULOCYTES %2018-03-28 05:40:00* Test Item Value Reference Range Interpretation Comments IM GRANULOCYTES % (test code = IM GRANULOCYTES %) 0.2 0.0- 1.0 [facility] CenterNeutrophils # (Auto)2018-03-28 05:40:00* Test Item Value Reference Range Interpretation Comments Neutrophils # (Auto) (test code = 751-8) 7.5 2.1-6.9 H [facility] CenterLymphocytes # (Auto)2018-03-28 05:40:00* Test Item Value Reference Range Interpretation Comments Lymphocytes # (Auto) (test code = 06556-4) 0.8 1.0-3.2 L [facility] CenterMonocytes # (Auto)2018-03-28 05:40:00* Test Item Value Reference Range Interpretation Comments Monocytes # (Auto) (test code = 742-7) 0.2 0.2-0.8 [facility] CenterEosinophils # (Auto)2018-03-28 05:40:00* Test Item Value Reference Range Interpretation Comments Eosinophils # (Auto) (test code = 711-2) 0.0 0.0-0.4 [facility] CenterBasophils # (Auto)2018-03-28 05:40:00* Test Item Value Reference Range Interpretation Comments Basophils # (Auto) (test code = 704-7) 0.0 0.0-0.1 [facility] CenterAbsolute Immature Granulocyte (auto 2018-03-28 05:40:00* Test Item Value Reference Range Interpretation Comments Absolute Immature Granulocyte (auto (christa t code = Absolute Immature Granulocyte (auto) 0.02 0-0.1 [facility]villeodium Glmfr0000-03-10 05:31:00* Test Item Value Reference Range Interpretation Comments Sodium Level (test code = 2951-2) 139 136-145 [facility] CenterPotassium Vxftk8665-80-63 05:31:00* Test Item Value Reference Range Interpretation Comments Potassium Level (test code = 2823-3) 3.7 3.5-5.1 [facility] CenterChloride Tzvvg9414-30-07 05:31:00* Test Item Value Reference Range Interpretation Comments Chloride Level (test code = 2075-0) 105 98-107 [facility] CenterCarbon Dioxide Nqfwt5687-30-11 05:31:00* Test Item Value Reference Range Interpretation Comments Carbon Dioxide Level (test code = 2028-9) 24 22-29 [facility] CenterAnion Eyb4909-99-11 05:31:00* Test Item Value Reference Range Interpretation Comments Anion Gap (test code = 36425-4) 13.7 8-16 [facility] CenterBlood Urea Zgqmwena8348-41-17 05:31:00* Test Item Value Reference Range Interpretation Comments Blood Urea Nitrogen (test code = 3094-0) 18 7-26 [facility] CenterCreatinine2018-08-09 05:31:00* Test Item Value Reference Range Interpretation Comments Creatinine (test code = 2160-0) 0.89 0.57-1.11 [facility] CenterBUN/Creatinine Owgez3477-43-45 05:31:00* Test Item Value Reference Range Interpretation Comments BUN/Creatinine Ratio (test code = 3097-3) 20 6-25 [facility] CenterEstimat Glomerular Filtration Rate 2018-03-28 05:31:00* Test Item Value Reference Range Interpretation Comments Estimat Glomerular Filtration Rate (test code = 19012-8) 60- >60 Ranges were taken from the National Kidney Disease Education Program and the [facility] Kidney Foundation literature.Reference ranges:60 or greater: Qrglwx93-04 ( for 3 consecutive months): Chronic kidney disease 15 or less: Kidney failureMemorial Hermann Memorial City Medical CenterGlucose Qxxst1810-32-64 05:31:00* Test Item Value Reference Range Interpretation Comments Glucose Level (test code = XPD1994) 149 74-118 H [facility] CenterCalcium Qvlfd4753-38-86 05:31:00* Test Item Value Reference Range Interpretation Comments Calcium Level (test code = 20420-7) 9.5 8.4-10.2 [facility]villeodium Ctpqn1339-01-45 05:31:00* Test Item Value Reference Range Interpretation Comments Sodium Level (test code = 2951-2) 139 136-145 [facility] CenterPotassium Btggs4188-32-67 05:31:00* Test Item Value Reference Range Interpretation Comments Potassium Level (test code = 2823-3) 3.7 3.5-5.1 [facility] CenterChloride Nehks3046-33-29 05:31:00* Test Item Value Reference Range Interpretation Comments Chloride Level (test code = 2075-0) 105 98-107 [facility] CenterCarbon Dioxide Qlqoq3498-88-75 05:31:00* Test Item Value Reference Range Interpretation Comments Carbon Dioxide Level (test code = 2028-9) 24 22-29 [facility] CenterAnion Osb3216-70-26 05:31:00* Test Item Value Reference Range Interpretation Comments Anion Gap (test code = 34514-2) 13.7 8-16 [facility] CenterBlood Urea Zlugoezo0620-23-82 05:31:00* Test Item Value Reference Range Interpretation Comments Blood Urea Nitrogen (test code = 3094-0) 18 7-26 [facility] CenterCreatinine2018-08-09 05:31:00* Test Item Value Reference Range Interpretation Comments Creatinine (test code = 2160-0) 0.89 0.57-1.11 [facility] CenterBUN/Creatinine Bduic6465-46-50 05:31:00* Test Item Value Reference Range Interpretation Comments BUN/Creatinine Ratio (test code = 3097-3) 20 6-25 [facility] CenterEstimat Glomerular Filtration Rate 2018-03-28 05:31:00* Test Item Value Reference Range Interpretation Comments Estimat Glomerular Filtration Rate (test code = 543058852) 60- >60 Ranges were taken from the National Kidney Disease Education Program and the [facility] Kidney Foundation literature.Reference ranges:60 or greater: Pxegtp46-78 ( for 3 consecutive months): Chronic kidney disease 15 or less: Kidney failureCHI [facility]ca [facility] Healthcare Medical CenterGlucose Lctaf0936-84-41 05:31:00* Test Item Value Reference Range Interpretation Comments Glucose Level (test code = WDT1725) 149 74-118 H [facility] CenterCalcium Jzpgn1798-05-84 05:31:00* Test Item Value Reference Range Interpretation Comments Calcium Level (test code = 75482-4) 9.5 8.4-10.2 [facility] CenterTotal Gyxknqegp2194-15-40 17:33:00* Test Item Value Reference Range Interpretation Comments Total Bilirubin (test code = 1975-2) 0.5 0.2-1.2 [facility] CenterAspartate Amino Transf (AST/SGOT) 2018-03-27 17:33:00* Test Item Value Reference Range Interpretation Comments Aspartate Amino Transf (AST/SGOT) (test code = Aspartate Amino Transf (AST/SGOT)) 20 5-34 [facility] CenterAlanine Aminotransferase (ALT/SGPT) 2018-03-27 17:33:00* Test Item Value Reference Range Interpretation Comments Alanine Aminotransferase (ALT/SGPT) (test code = 1742-6) 13 0-55 [facility] CenterTotal Hrffyrq9828-85-89 17:33:00* Test Item Value Reference Range Interpretation Comments Total Protein (test code = 2885-2) 6.8 6.5-8.1 [facility] CenterAlbumin2018-08-08 17:33:00* Test Item Value Reference Range Interpretation Comments Albumin (test code = 1751-7) 3.5 3.5-5.0 [facility] CenterGlobulin2018-08-08 17:33:00* Test Item Value Reference Range Interpretation Comments Globulin (test code = 64443-5) 3.3 2.3-3.5 [facility] CenterAlbumin/Globulin Dmluw6238-73-17 17:33:00 * Test Item Value Reference Range Interpretation Comments Albumin/Globulin Ratio (test code = 1759-0) 1.1 0.8-2.0 [facility] CenterAlkaline Nrdcipsjlxd2787-29-44 17:33:00* Test Item Value Reference Range Interpretation Comments Alkaline Phosphatase (test code = 6768-6) 40 40-150 [facility] CenterTotal Ldiyyhedy9279-36-27 17:33:00* Test Item Value Reference Range Interpretation Comments Total Bilirubin (test code = 1975-2) 0.5 0.2-1.2 [facility] CenterAspartate Amino Transf (AST/SGOT) 2018-03-27 17:33:00* Test Item Value Reference Range Interpretation Comments Aspartate Amino Transf (AST/SGOT) (test code = Aspartate Amino Transf (AST/SGOT)) 20 5-34 [facility] CenterAlanine Aminotransferase (ALT/SGPT) 2018-03-27 17:33:00* Test Item Value Reference Range Interpretation Comments Alanine Aminotransferase (ALT/SGPT) (test code = 1742-6) 13 0-55 [facility] CenterTotal Bgalmvw2099-30-02 17:33:00* Test Item Value Reference Range Interpretation Comments Total Protein (test code = 2885-2) 6.8 6.5-8.1 [facility] CenterAlbumin2018-08-08 17:33:00* Test Item Value Reference Range Interpretation Comments Albumin (test code = 1751-7) 3.5 3.5-5.0 [facility] CenterGlobulin2018-08-08 17:33:00* Test Item Value Reference Range Interpretation Comments Globulin (test code = 15963-4) 3.3 2.3-3.5 [facility] CenterAlbumin/Globulin Bhpsv1620-55-21 17:33:00 * Test Item Value Reference Range Interpretation Comments Albumin/Globulin Ratio (test code = 1759-0) 1.1 0.8-2.0 [facility] CenterAlkaline Xnqsjytwprx4604-01-79 17:33:00* Test Item Value Reference Range Interpretation Comments Alkaline Phosphatase (test code = 6768-6) 40 40-150 [facility] Uvowkbl1141-75-01 12:43:00* Test Item Value Reference Range Interpretation Comments Bedside Glucose (test code = 30329-3) 86 70-120 Meter ID: [id number] [facility] Glucose 2018-03-27 12:43:00* Test Item Value Reference Range Interpretation Comments Bedside Glucose (test code = 89758-6) 86 70-120 Meter ID: [id number] Hermann [facility] City Medical CenterProthrombin Time 2018-03-26 12:32:00* Test Item Value Reference Range Interpretation Comments Prothrombin Time (test code = 5902-2) 12.6 11.9-14.5 [facility] CenterProthromb Time International Ratio 2018-03-26 12:32:00* Test Item Value Reference Range Interpretation Comments Prothromb Time International Ratio (test code = 6301-6) 1.02 Oral Anticoagulant Therapy INR Values:1. Low Intensity Therapy 1.5 - 2.02 . Moderate Intensity Therapy 2.0 - 3.03. High Intensity Therapy(1) 2.5 - 3. 54. High Intensity Therapy(2) 3.0 - 4.05. Panic Value INR > 5.0 [facility] Partial Thromboplast Time 2018-03-26 12:32:00* Test Item Value Reference Range Interpretation Comments Activated Partial Thromboplast Time (test code = 88860-5) 28.8 23.8-35.5 [facility] CenterProthrombin [id number] 12:32:00* Test Item Value Reference Range Interpretation Comments Prothrombin Time (test code = 5902-2) 12.6 11.9-14.5 [facility] CenterProth[facility] Time International Ratio 2018-03-26 12:32:00* Test Item Value Reference Range Interpretation Comments Prothromb Time International Ratio (test code = 6301-6) 1.02 Oral Anticoagulant Therapy INR Values:1. Low Intensity Therapy 1.5 - 2.02 . Moderate Intensity Therapy 2.0 - 3.03. High Intensity Therapy(1) 2.5 - 3. 54. High Intensity Therapy(2) 3.0 - 4.05. Panic Value INR > 5.0 [facility] Partial Thromboplast Time 2018-03-26 12:32:00* Test Item Value Reference Range Interpretation Comments Activated Partial Thromboplast Time (test code = 18870-8) 28.8 23.8-35.5 [facility] CenterCHEST 2 [id number] 12:28:00 [facility] [address] [address] Patient Name: SCOTT WHITTAKER MR #: [id number] : Age/Sex: 73/F Req #: [id number] Adm Physician: Ordered by: XIOMARA GLASS MD Report #: [id number] Location: OR Room/Bed: Procedure: [id number] DX/CHEST 2 VIEWS Exam Date: 0 03/26/18 Exam Time: 1200 REPORT STATUS: Signed PROCEDURE: X-RAY CHEST, TWO VIEWS COMPARISON: None. INDICATIONS: chest pain FINDINGS: The lungs are well-inflated. No focal consolidation, pleural effusion, or pneumothorax. Left upper lobe calcified granuloma. Mild tortuosity and atherosclerotic calcification of the thoracic aorta. Nor mal heart size. No pulmonary edema. No acute osseous abnormality. Bilatera l acromioclavicular degenerative changes. Surgical clips project over the rig ht upper quadrant of the abdomen likely related to prior cholecystectomy. CONCLUSION: No acute cardiopulmonary abnormality. Dic tated by: Gayathri Rojo M.D. on 03/26/2018 at 12:28 Electronically approved by: Gayathri Rojo M.D. on 03/26/2018 at 12:28 Dictated By: GAYATHRI ROJO MD 1228 Transcri bed By: SUNNI on 03/26/18 1228 COPY TO: XIOMARA GLASS MD Blood Urea [id number] 14:40:00* Test Item Value Reference Range Interpretation Comments Blood Urea Nitrogen (test code = 3094-0) 16 - [facility] CenterCreatinine2018-03-22 14:40:00* Test Item Value Reference Range Interpretation Comments Creatinine (test code = 2160-0) 1.25 0.57-1.11 H [facility] CenterBUN/Creatinine [id number] 14:40:00* Test Item Value Reference Range Interpretation Comments BUN/Creatinine Ratio (test code = 3097-3) 13 02-11 [facility] CenterEstimat Glomerular Filtration Rate 2017-11-08 14:40:00* Test Item Value Reference Range Interpretation Comments Estimat Glomerular Filtration Rate (test code = 67509-3) 42 >60 L Ranges were taken from the National Kidney Disease Education Program and the [facility] literature.Reference ranges:60 or greater: Escfhs68-47 ( for 3 consecutive months): Chronic kidney disease 15 or less: Kidney failureCHI [facility] Medical CenterCTA NECK [place] [address] Patient Name: SCOTT WHITTAKER MR #: [id number] : 1945 Age/Sex: 72/F Req #: [id number] Adm Physician: Ordered by: ARLEN KAY MD Report #: [id number] Location: [place] Room/Bed: Procedure: [id number] CT/CTA NECK Exam Date: Exam Time: 1536 REPORT STATUS: Signed EXA MINATION: CT angiogram of the neck CLINICAL HISTORY:Bilateral carotid arter y stenoses follow-up COMPARISON STUDIES:None TECHNIQUE: Axial images were ob tained from the thoracic inlet. Coronal and sagittal images reconstructed from the axial data. Intravenous contrast: 75 mL. Of Isovue 370, hydration protocol was used. FINDINGS: If present, stenosis of the carotid bulbs is leila sured based on NASCET criteria i.e area of maximum stenosis compared to the ce rvical ICA distal to the bulb. Aortic arch and major vessels: Patent. No abnormalities. Common carotid arteries: Right: Patent. No abnormalities. Left :Patent. No abnormalities. Carotid bulbs: Right: Patent. No abnorm alities. Left :Patent. No abnormalities. Internal carotid arteries: Rig ht: Soft and calcified plaque in the right carotid bulb results in moderate st enosis (greater than 70 %) otherwise the cervical internal carotid artery is u nremarkable. Left: Minimal mostly soft atherosclerotic plaque in the left smith tid bulb results in mild stenoses (less than 50%), otherwise unremarkable cerv ical internal carotid artery.. Vertebral arteries: Patent. No abnormali ties. The right is dominant. IMPRESSION: 1. Severe stenosis of the ri ght carotid bulb (greater than 70%). 2. Mild stenosis of the left carotid bulb (less than 50%). 3. Unremarkable vertebral arteries. Signed by: Dr. Krunal Cardenas M.D. on 11/12/2017 9:53 AM Dictated By: KRUNAL CARDENAS MD E lectronically Signed By: KRUNAL CARDENAS MD on 11/12/17952 Transcribed By: MILAGROS Haddad on 11/12/17952 COPY TO: ARLEN KAY MD CT ABDOMEN/PELVIS [place] [address] Patient Name: SCOTT WHITTAKER MR #: [id number] : 1945 Age/Sex: 72/F Req #: [id number] Adm Physician: Ordered by: MINGO CHÁVEZ MD Report #: [id number] Location: ER Room/Bed: Procedure: [id number] CT/CT ABDOMEN/PELVIS WO Exam Date: 05/26/17 Exam Time: 2105 REPORT STATUS: S igned EXAM: CT ABDOMEN AND PELVIS without IV CONTRAST DATE: 05/26/2017 7:36 PM Time stamp on Exam: 2106 hours INDICATION: Gallbladder removed one week a go, now with epigastric pain and nausea COMPARISON: None TECHNIQUE: The abdomen and pelvis were scanned using a multidetector helical scanner. Coronal and sagittal reformations were obtained. Routine protocol performed. IV Con trast: None Oral Contrast: Gastrografin CTDIvol has been reviewed. It is bel ow the limits set by the Radiation Protocol Committee (RPC). FINDINGS: LOWER THORAX: Linear scarring or atelectasis in each lung base. LIVER: No m asses BILIARY: Small amount of fluid and punctate air in the gallbladder fossa . Cholecystectomy clips. SPLEEN: No masses PANCREAS: No masses AD RENALS: No nodules KIDNEYS: No nephroureterolithiasis or hydronephrosis. GI TRACT: Nonspecific thickening of the first portion of the duodenum. Normal appendix. VESSELS: Atherosclerotic changes of the abdominal aorta. PERITO NEUM/RETROPERITONEUM: No free air or fluid LYMPH NODES: No lymphadenopathy REPRODUCTIVE ORGANS: The patient has a curvilinear intrauterine device, that is anteriorly located in the uterus. The uterus is large for age. BLADDER: Un remarkable SOFT TISSUES: Unremarkable BONES: No suspicious bone lesions. IMPRESSION: Expected postsurgical changes of recent cholecystectomy. Wall thickening of the first portion of the duodenum, more than expected for peristalsis. Consider duodenitis in the appropriate clinical setting. There is an intrauterine device that is anteriorly located in the uterus. The uterus is large for age. This could be secondary to a large fibroid. Consider nonem ergent follow-up pelvic and transvaginal ultrasound. Signed by: Dr. Candice Wilkinson M.D. on 05/26/2017 9:42 PM Dictated By: CANDICE WILKINSON MD Elec tronically Signed By: CANDICE WILKINSON MD on 05/26/172141 Transcribed By: HALLIE on 05/26/172141 COPY TO: MINGO CHÁVEZ MD US GALLBLADDER [place] [address] Patient Name: SCOTT WHITTAKER MR #: [id number] : Age/Sex: 72/F Req #: [id number] Adm Physician: Ordered by: JACOB LOMELI MD Report #: [id number] Location: ER Room/Bed: Procedure: [id number] US/US GALLBLADDER Exam Date: Exam Time: REPORT STATUS: Signed PROCEDURE: US GALLBLADDER COMPARISON: [facility], CT, CT ABDOMEN/PELVIS W, 12/01/2016, 17:26. INDICATIONS: Abdominal pain TECHNIQUE: Roman-scale and color doppler transverse and longitudinal images of the right upper quadrant of the abdomen were obtained. FINDINGS: Liver: 13.4 cm in right mid-clavicular line. Normal echogenicity. No masses. Main portal vein: 0.9 cm, hepatopetal flow Gallbladder: 2 mobile, echogenic stones are noted in the gallbladder lumen, measuring 3.2 x 0.9 x 2.5 cm and 1.8 x 1.1 x 2.7 cm. Mild wall thickening, measuring 0.5 cm. Trace pericholecystic fluid. Common Bile Duct: 0.5 cm. cm Sonographic Griffith's sign: Negative Right kidney: 10.2 cm cm. Normal echogenicity. No solid masses or hydronephrosis. Pancreas: The visualized portions of the neck and proximal body are unremarka ble. Inferior vena cava: Patent Aorta: Within normal limits Ascites: None in the right upper quadrant of the abdomen. CONCLUSION: 1. Elizabeth lithiasis with mild gallbladder wall thickening and trace pericholecystic flu id, however, the sonographic Griffith's sign is negative. Findings are similar to prior CT dated 12/01/2016. Low likelihood of acute cholecystitis. Yo Bhagat M.D. Dictated by: Yo Bhagat M.D. on 05/17/2017 at 19:04 Electronically approved by: Yo Bhagat M.D. on 05/17/20 17 at 19:04 Dictated By: YO BHAGAT MD Electronically Sig celeste By: YO BHAGAT MD on 05/17/17 190 Transcribed By: SUNNI on 05/17/17 19 COPY TO: JACOB LOMELI MD
[2020-07-11 23:21] LABS: ALBUMIN 3.7 g/dL (3.5-5.0); ALBUMIN/GLOBULIN RATIO 1.1 (0.8-2.0); ANION GAP 15.8 mmol/L (8-16); CALCIUM 9.7 mg/dL (8.4-10.2); CREATININE, SERUM 1.22 mg/dL (0.57-1.11); POTASSIUM 3.8 mmol/L (3.5-5.1)
[2020-07-12 00:07] VITALS: BP 144/64
--- NOTE | 2020-07-12 08:53 | Diagnostic Imaging Report ---
X-ray chest frontal view History: Palpitations Comparison: None Findings: Lines and tubes: No change Central airways: Unremarkable Cardiac silhouette: Unremarkable Mediastinal silhouettes: Unremarkable Pleura: No pleural effusion, pneumothorax or thickening Diaphragms: Unremarkable Lungs: No focal lung disease Skeletal structures: Unremarkable Extrathoracic soft tissues: Unremarkable Impression: No acute cardiopulmonary disease. Signed by: Hussain Chong MD on 07/12/2020 8:50 AM
== END 2020-07-12 00:13 | disposition home or self-care (01) ==
LOC: ER 21:38
DX: R00.2 Palpitations (principal); I16.0 Hypertensive urgency; I10 Essential (primary) hypertension; E11.65 Type 2 diabetes mellitus with hyperglycemia; E78.5 Hyperlipidemia, unspecified; F17.210 Nicotine dependence, cigarettes, uncomplicated
CPT/HCPCS: 36415; 70450; 71045; 80053; 82550; 82553; 83880; 84484; 85025; 93005; 99284; J7030

== ENCOUNTER 2021-05-08 18:39 | Emergency (ER) | payer OTHER ==
[~2021-05-08] VITALS: Ht 162.6 cm; Wt 64.9 kg
== END 2021-05-08 22:00 | disposition home or self-care (01) ==
LOC: FSED 21:33
DX: T46.5X1A Poisoning by other antihypertensive drugs, accidental (unintentional), initial encounter (principal); I10 Essential (primary) hypertension; E78.5 Hyperlipidemia, unspecified
CPT/HCPCS: 99282

== ENCOUNTER 2024-07-01 10:20 | Emergency (ER) | payer MEDICARE ==
[~2024-07-01] VITALS: Ht 162.6 cm; Wt 66.3 kg
[~2024-07-01 10:20] MED LIST changes: +ATORVASTATIN CA40 MG PO; +LOSARTAN POTAS100 MG PO; +METOPROLOL SUCC50 MG PO; +TERAZOSIN HCL2 MG PO
[2024-07-01] MEDS ORDERED: BENZONATATE100 MG PO (11:23)
[2024-07-01] MEDS ORDERED: PROAIR DIGIHAL90 MCG INH (11:23)
[2024-07-01] MEDS ORDERED: AUGMENTIN 500-1 EACH PO (11:24)
[2024-07-01] MEDS: ALBUTEROL/IPRATROPIUM 3 ML NEB NEB ONE (11:35)
[2024-07-01 11:51] VITALS: PULSE 78; RESP 16; TEMP 98.4; O2SAT 96
== END 2024-07-01 11:51 | disposition home or self-care (01) ==
LOC: FSED 10:25
DX: R06.00 Dyspnea, unspecified (principal); J20.9 Acute bronchitis, unspecified; R05.9 Cough, unspecified; I10 Essential (primary) hypertension; E11.9 Type 2 diabetes mellitus without complications; E78.5 Hyperlipidemia, unspecified; I25.10 Atherosclerotic heart disease of native coronary artery without angina pectoris; Z11.52 Encounter for screening for COVID-19; F17.210 Nicotine dependence, cigarettes, uncomplicated
CPT/HCPCS: 0223U; 71046; 83518; 87400; 99284